=== PATIENT | female | born 1985 ===

== ENCOUNTER 2021-12-24 18:06 | Emergency (ER) | payer SELFPAY ==
[2021-12-24] MEDS ORDERED: Sodium Chloride 0.9% 10 ML Syringe FLUSH PRN (19:34)
[2021-12-24] MEDS ORDERED: Ketorolac 30 MG/ML SDV IVPUSH ONE (19:43)
[2021-12-24] MEDS ORDERED: Ondansetron 4 MG/2 ML SDV IVPUSH ONE (19:43)
[2021-12-24] MEDS ORDERED: Phenazopyridine 95 MG Tab PO ONE (19:44)
[2021-12-24] MEDS ORDERED: fentaNYL 100 MCG/2 ML SDV IVPUSH ONE ×2 (20:43→21:53)
[2021-12-24] MEDS ORDERED: cefTRIAXone 2 GM in Sodium Chloride 0.9% 100 ML IV ONE (21:53)
== END 2021-12-24 22:40 | disposition home or self-care (01) ==
LOC: DL.ED 18:06
DX: N30.01 Acute cystitis with hematuria (principal); F17.210 Nicotine dependence, cigarettes, uncomplicated
CPT/HCPCS: 36415; 74176; 80053; 81001; 81025; 83605; 83690; 83735; 85025; 86140; 87086; 87088; 87186; 93010; 96365; 96375; 96376; 99284; 99284-25; A9270-GY; J0696; J1885; J2405; J3010; J3490

== ENCOUNTER 2022-01-13 12:55 | Emergency (ER) | payer MEDICAID | END 2022-01-13 16:57 | disposition home or self-care (01) | LOC: DL.ED 12:55 | DX: S92.524A Nondisplaced fracture of middle phalanx of right lesser toe(s), initial encounter for closed fracture (principal); W18.40XA Slipping, tripping and stumbling without falling, unspecified, initial encounter | CPT/HCPCS: 73660-T8; 99283 ==

== ENCOUNTER 2022-02-15 11:53 | Emergency (ER) | payer MEDICAID ==
[2022-02-15] MEDS ORDERED: Ondansetron 4 MG Tab.DIS PO ONE (11:54)
[2022-02-15] MEDS ORDERED: Sodium Chloride 0.9% 10 ML Syringe FLUSH PRN (12:01)
[2022-02-15] MEDS ORDERED: Sodium Chloride 0.9% 1,000 ML IV ONE (12:20)
[2022-02-15] MEDS ORDERED: Ondansetron 4 MG/2 ML SDV IVPUSH ONE (12:20)
[2022-02-15 12:39] LABS: ANION GAP 14.3 mEq/L (7-13); CHLORIDE,CL 106 mmol/L (98-107); SODIUM,NA 143 mmol/L (136-145)
[2022-02-15 12:42] LABS: ESTIMATED GFR 117 mL/min (>=60)
[2022-02-15] MEDS ORDERED: Ketorolac 30 MG/ML SDV IVPUSH ONE (13:14)
[2022-02-15 13:32] LABS: AMPHETAMINES,URINE NEGATIVE (NEGATIVE); BARBITURATES,URINE NEGATIVE (NEGATIVE); BENZODIAZEPINE,URINE NEGATIVE (NEGATIVE); MDMA (ECSTASY), URINE NEGATIVE (NEGATIVE); METHADONE,URINE NEGATIVE (NEGATIVE); METHAMPHETAMINES,URINE NEGATIVE (NEGATIVE); OPIATES,URINE NEGATIVE (NEGATIVE); OXYCODONE,URINE NEGATIVE (NEGATIVE); PHENCYCLIDINE,URINE NEGATIVE (NEGATIVE); TCA,URINE NEGATIVE (NEGATIVE)
[2022-02-15] MEDS ORDERED: Ondansetron 4 MG Tab.DIS ONE (13:57)
== END 2022-02-15 14:05 | disposition home or self-care (01) ==
LOC: DL.ED 11:53
DX: K52.9 Noninfective gastroenteritis and colitis, unspecified (principal); F17.210 Nicotine dependence, cigarettes, uncomplicated; Z79.899 Other long term (current) drug therapy
CPT/HCPCS: 36415; 74018; 80053; 80305; 80307; 81001; 81025; 82150; 83605; 83690; 85025; 86140; 96361; 96374; 96375; 99284; A9270; J1885; J2405; J3490; J7030

== ENCOUNTER 2022-02-19 11:01 | Emergency (ER) | payer MEDICAID ==
[2022-02-19] MEDS ORDERED: Sodium Chloride 0.9% 10 ML Syringe FLUSH PRN (11:10)
[2022-02-19] MEDS ORDERED: Sodium Chloride 0.9% 1,000 ML IV ONE (11:10)
[2022-02-19] MEDS ORDERED: Ondansetron 4 MG/2 ML SDV IVPUSH ONE (11:10)
[2022-02-19 12:18] LABS: AMPHETAMINES,URINE NEGATIVE (NEGATIVE); BARBITURATES,URINE NEGATIVE (NEGATIVE); BENZODIAZEPINE,URINE NEGATIVE (NEGATIVE); MDMA (ECSTASY), URINE NEGATIVE (NEGATIVE); METHADONE,URINE NEGATIVE (NEGATIVE); METHAMPHETAMINES,URINE NEGATIVE (NEGATIVE); OPIATES,URINE NEGATIVE (NEGATIVE); OXYCODONE,URINE NEGATIVE (NEGATIVE); PHENCYCLIDINE,URINE NEGATIVE (NEGATIVE); TCA,URINE NEGATIVE (NEGATIVE)
[2022-02-19 12:51] LABS: ANION GAP 11.8 mEq/L (7-13); CHLORIDE,CL 109 mmol/L (98-107); SODIUM,NA 146 mmol/L (136-145)
[2022-02-19 12:52] LABS: ESTIMATED GFR 122 mL/min (>=60)
[2022-02-19] MEDS ORDERED: Iopamidol 612 MG/ML 100 ML Bottle IVPUSH ONE (12:56)
[2022-02-19] MEDS ORDERED: Pantoprazole 40 MG Vial IVPUSH ONE (13:56)
[2022-02-19] MEDS ORDERED: diphenhydrAMINE 50 MG/ML SDV IVPUSH ONE (13:57)
== END 2022-02-19 15:10 | disposition home or self-care (01) ==
LOC: DL.ED 11:01
DX: K29.70 Gastritis, unspecified, without bleeding (principal); Z72.0 Tobacco use
CPT/HCPCS: 36415; 74177; 80053; 80305; 80307; 81001; 81025; 82150; 83605; 83690; 83735; 84145; 85025; 86140; 87086; 87088; 87186; 93005; 96361; 96374; 96375; 99284; C9113; J1200; J2405; J3490; J7030; Q9967